=== PATIENT | female | born 1960 | race Caucasian/White ===

== ENCOUNTER 2016-07-12 17:44 | Emergency (ER) | payer MEDICARE, OTHER ==
[~2016-07-12 17:44] MED LIST: ASPIRIN EC81 MG PO; CELEXA20 MG PO; GLUCOPHAGE 500500 MG PO; HYZAAR 50-12.51 EACH PO; LANTUS100 UNIT/1 SQ; LISINOPRIL5 MG PO; LYRICA150 MG PO; NEXIUM20 MG PO; NOVOLOG 10100 UNITS/ SQ; PREVACID30 MG PO; SLEEPING PILL; ULTRAM50 MG PO; VITAMIN E400 UNI4 PO
== END 2016-07-12 20:33 | disposition home or self-care (01) ==
LOC: ER1 17:44
DX: M48.06 Spinal stenosis, lumbar region (principal); E11.9 Type 2 diabetes mellitus without complications; E78.5 Hyperlipidemia, unspecified; M79.7 Fibromyalgia; Z88.5 Allergy status to narcotic agent; Z79.4 Long term (current) use of insulin; Z79.899 Other long term (current) drug therapy
CPT/HCPCS: 72131; 96372; 99283; J1885

== ENCOUNTER → 2016-07-15 | Outpatient (CLI) | payer MEDICARE, OTHER | LOC: EMI 18:00 | DX: M54.16 Radiculopathy, lumbar region (principal); M54.5 Low back pain; M48.06 Spinal stenosis, lumbar region | CPT/HCPCS: 72148 ==

== ENCOUNTER → 2016-07-23 | Outpatient (CLI) | payer MEDICARE, OTHER ==
[2016-07-23 14:11] LABS: HEMOGLOBIN 13.8 gm/dl (12.3-15.3); RED BLOOD COUNT 4.89 M/UL (4.00-5.10); WHITE BLOOD COUNT 8.3 K/UL (4.5-11.0)
== END ==
LOC: LBRF 13:05
PROVIDERS: Nurse Practitioner
DX: M05.79 Rheumatoid arthritis with rheumatoid factor of multiple sites without organ or systems involvement (principal); M25.50 Pain in unspecified joint
CPT/HCPCS: 36415; 80053; 85025; 86039; 86140; 86200; 86431

== ENCOUNTER → 2016-09-03 | Outpatient (CLI) | payer MEDICARE, OTHER | LOC: MAMO 08:00 | DX: Z12.31 Encounter for screening mammogram for malignant neoplasm of breast (principal); R92.1 Mammographic calcification found on diagnostic imaging of breast | CPT/HCPCS: G0202 ==

== ENCOUNTER 2021-11-20 13:50 | Observation (INO) | payer OTHER ==
[~2021-11-20] VITALS: Ht 165.1 cm; Wt 83.5 kg
[~2021-11-20 13:50] MED LIST changes: +CYCLOBENZAPRINE10 MG PO; +LISINOPRIL20 MG PO; -LISINOPRIL5 MG PO; -LYRICA150 MG PO; +LYRICA300 MG PO; +NAPROXEN500 MG PO; +NORFLEX 100 MG100 MG PO
[2021-11-20 14:17] LABS: HEMOGLOBIN 14.4 gm/dl (12.3-15.3); RED BLOOD COUNT 4.83 M/UL (4.00-5.10); WHITE BLOOD COUNT 4.3 K/UL (4.5-11.0)
[2021-11-20 15:10] LABS: BUN/CREATININE RATIO 10 (0-10)
[2021-11-21 03:33] LABS: HEMOGLOBIN 13.9 gm/dl (12.3-15.3); RED BLOOD COUNT 4.71 M/UL (4.00-5.10)
[2021-11-21] MEDS ORDERED: FAMOTIDINE20 MG PO (13:38)
[2021-11-21] MEDS ORDERED: DEXILANT30 MG PO (13:40)
[2021-11-21] MEDS ORDERED: PROVENTIL HFA6.7 GM INH (13:44)
[2021-11-21] MEDS ORDERED: SIMVASTATIN20 MG PO (13:44)
[2021-11-22 01:53] LABS: HEMOGLOBIN 12.7 gm/dl (12.3-15.3); RED BLOOD COUNT 4.32 M/UL (4.00-5.10)
[2021-11-22] MEDS ORDERED: ASPIRIN EC81 MG PO (12:46)
[2021-11-22] MEDS ORDERED: COREG25 MG PO (12:46)
[2021-11-22] MEDS ORDERED: AMLODIPINE BESYL5 MG PO (12:46)
== END 2021-11-22 14:07 | disposition home or self-care (01) ==
LOC: ER1 13:50 → M/S 17:47 → CDU 17:47 → M/S 19:11
PROVIDERS: Physician Assistant Medical; Student in an Organized Health Care Education/Training Program; ADMIT Internal Medicine
DX: U07.1 COVID-19 (principal); J44.1 Chronic obstructive pulmonary disease with (acute) exacerbation; N17.9 Acute kidney failure, unspecified; E11.9 Type 2 diabetes mellitus without complications; I10 Essential (primary) hypertension; G61.0 Guillain-Barre syndrome; F17.210 Nicotine dependence, cigarettes, uncomplicated; Z88.5 Allergy status to narcotic agent; Z79.899 Other long term (current) drug therapy
CPT/HCPCS: 0240U; 36415; 71045; 80048; 80053; 81001; 82436; 82550; 82553; 83036; 83735; 84100; 84133; 84300; 84484; 85025; 85027; 89050; 93005; 94640; 94760; 96361; 96374; 99285; G0378; J1100; J1650; J3475; P9047